=== PATIENT | male | born 1960 | race Caucasian/White ===

== ENCOUNTER → 2017-02-11 | Outpatient (CLI) | payer OTHER ==
[~2017-02-11] MED LIST: ADVAIR 250-501 EACH INH; COLACE100 MG PO; COUMADIN 5 MG TA5 M1 PO; HYDROCODONE-APA1 TA1 PO; IBUPROFEN200 M1 PO; OMEGA-31000 M1 PO; PROAIR HFA8.5 GM INH; PROTONIX40 M1 PO; VENLAFAXIN75 MG/1 T2 PO; WELLBUTRIN SR150 MG PO; XARELTO10 MG PO
== END ==
LOC: ULTRA 02-10 07:44
DX: K76.89 Other specified diseases of liver (principal); K55.059 Acute (reversible) ischemia of intestine, part and extent unspecified

== ENCOUNTER 2017-03-11 13:19 | Emergency (ER) | payer OTHER ==
[~2017-03-11] VITALS: Ht 182.9 cm; Wt 136.1 kg
[~2017-03-11 13:19] MED LIST changes: +EFFEXOR XR150 MG PO; -VENLAFAXIN75 MG/1 T2 PO
[2017-03-11 14:05] LABS: URINE BILIRUBIN NEGATIVE (Negative); URINE BLOOD NEGATIVE (Negative); URINE COLOR YELLOW; URINE GLUCOSE-RANDOM* NEGATIVE (Negative); URINE KETONES TRACE (Negative); URINE NITRITE NEGATIVE (Negative); URINE PROTEIN (DIPSTICK) NEGATIVE (Negative); URINE SPECIFIC GRAVITY 1.025 (1.003-1.035); URINE UROBILINOGEN 0.2 E.U./dl (0.2-1.0)
[2017-03-11 14:05] LABS: HEMATOCRIT 46.6 % (42.0-52.0); HEMOGLOBIN 15.6 gm/dL (14.0-18.0); MCH 32.4 pg (26.0-34.0); MCHC 33.4 g/dL (28.0-37.0); MCV 96.9 fL (80.0-100.0); PLATELET COUNT 266 thou/uL (150-400); RBC 4.81 mil/uL (4.50-6.00); RDW 13.4 % (10.5-14.5); WBC 7.1 thou/uL (4.0-11.0)
[2017-03-11 14:08] LABS: MANUAL DIFF YES
[2017-03-11 14:14] LABS: AMP/METHAMP Negative (Negative); BARBITURATES Negative (Negative); BENZODIAZEPINES Negative (Negative); COCAINE Negative (Negative); METHADONE Negative (Negative); OPIATES Negative (Negative); PCP Negative (Negative); THC Negative (Negative)
[2017-03-11 14:15] LABS: ANION GAP 10 mmol/L (7-16); BUN 12 mg/dL (7-18); CALCIUM 8.8 mg/dL (8.5-10.1); CHLORIDE 105 mmol/L (98-107); CO2 26 mmol/L (21-32); CREATININE 1.2 mg/dL (0.7-1.3); GLUCOSE 113 mg/dL (74-106); SODIUM 141 mmol/L (136-145)
[2017-03-11 14:19] LABS: ALBUMIN 3.7 g/dL (3.4-5.0); ALKALINE PHOSPHATASE 123 U/L (46-116); DIRECT BILIRUBIN < 0.1 mg/dL (<0.1-0.3); SALICYLATE < 2.8 mg/dL (2.8-20.0); SGOT 33 U/L (15-37); SGPT 45 U/L (30-65); TOTAL BILIRUBIN 0.2 mg/dL (<0.1-1.0)
[2017-03-11] MEDS ORDERED: ATIVAN1 MG PO (14:23)
[2017-03-11 14:36] LABS: ABSOLUTE NEUTROPHILS 4.1 thou/uL (1.4-8.2); TOTAL CELL COUNT 100
[2017-03-11 14:45] LABS: ACETAMINOPHEN < 2 ug/mL (10-30)
[2017-03-11] MEDS ORDERED: EFFEXOR XR75 MG PO (17:48)
[2017-03-11] MEDS ORDERED: VENLAFAXINE HC150 M1 PO (17:49)
== END 2017-03-11 18:39 | disposition home or self-care (01) ==
LOC: ER 13:19
PROVIDERS: Physician Assistant
DX: F32.9 Major depressive disorder, single episode, unspecified (principal); F17.210 Nicotine dependence, cigarettes, uncomplicated; Z98.890 Other specified postprocedural states

== ENCOUNTER → 2019-06-29 | Day surgery (SDC) | payer BC ==
[~2019-06-29] VITALS: Ht 182.9 cm; Wt 127.0 kg
[~2019-06-29] MED LIST changes: +ATIVAN1 MG PO; +BENADRYL25 MG PO; +EFFEXOR XR75 MG PO; +HAIR, SKIN AND1 EAC2 PO; +LEXAPRO20 MG PO; +PERCOCET 7.5-31 EAC1 PO; +RITALIN10 MG PO; +SINGULAIR 10 MG10 M1 PO; +VENLAFAXINE HC150 M1 PO; +VRAYLAR1.5 MG PO; +XANAX 0.25 MG0.25 MG PO
--- NOTE | ~2019-06-29 | O ---
[facility] [place] [address] OPERATIVE REPORT Name: MARIAELENA FULLER Room #: REG [facility]..#: [id number] Admission: 06/29/19 Attend Phys: Isaac James MD Discharge: Date of : 58 Report #: [id number] THIS REPORT FOR: //name// CC: Isaac James Physician staff ERNA AC DATE OF SERVICE: 06/29/2019 PREOPERATIVE DIAGNOSIS: Bilateral foot 2, 3 and 4 hammertoe deformities. POSTOPERATIVE DIAGNOSIS: Bilateral foot 2, 3 and 4 hammertoe deformities. PROCEDURE: 1. Bilateral foot second, third and fourth toe proximal interphalangeal joint arthrodesis. 2. Bilateral foot second, third and fourth metatarsophalangeal joint dorsal capsulotomy and tenotomy. SURGEON: Dr. Isaac James. PRODUCT CRAFTSMAN: Keyla Hernandez. ANESTHESIA: General. ESTIMATED BLOOD LOSS: Minimal. DRAINS: No drains. TOURNIQUET TIME: On the left was 30 minutes. On the right was 30 minutes. DESCRIPTION OF PROCEDURE: The patient brought to the operating room where he was placed under general anesthesia. Once under adequate general anesthesia, his bilateral lower extremities were prepped and draped in a sterile manner. The left lower extremity was then elevated, exsanguinated, tourniquet placed 300 mmHg. Dorsal incisions at the proximal interphalangeal joints of the second, third and fourth toes was made. This was dissected sharply down to the proximal interphalangeal joint where the proximal phalangeal head was then exposed, releasing the collateral ligaments. The proximal phalangeal head at the second, third and fourth toes was then excised utilizing a sagittal saw and a rongeur. The bases of the middle phalanges were prepared with a rongeur to good bleeding subchondral bone and subsequently each toe was drilled and broached for at the proximal and middle phalanges for the Smart Toe implants. Smart Toe implants were then placed in the second, third and fourth toes respectively size 21, 19 and 19. Excellent fixation across the joint was achieved in this manner as verified under fluoroscopy. Dorsal incisions at the 2-3 and 3-4 web spaces were [facility] [address] [place] [address] OPERATIVE REPORT Name: MARIAELENA FULLER Room #: REG SD M.R.#: [id number] Admission: 06/29/19 Attend Phys: Isaac James MD Discharge: Date of : 58 Report #: [id number]. Dissection was carried down to the second, third and fourth metatarsophalangeal joints respectively where a dorsal capsulotomy and tenotomy was performed with tenotomy scissors and a [place] blade. Once complete, the wounds were irrigated copiously and closed with 3-0 Vicryl in subcutaneous tissues and 3-0 nylon for the skin. The tourniquet was let down on the left side at 30 minutes. We then proceeded to the right side, which was then elevated, exsanguinated, tourniquet placed 300 mmHg. Dorsal incisions at the second, third and fourth toes were made over the proximal interphalangeal joints. Exposure was made of the proximal phalangeal heads, which were then resected utilizing a sagittal saw and a rongeur. The bases of the middle phalanges were then prepared as well with a rongeur to good bleeding subchondral bone. Smart Toe implants were then drilled and broached for and then placed at the second, third and fourth toes size 21, 19 and 19 respectively second, third and fourth toes. Excellent fixation was achieved as verified under fluoroscopy. Dorsal incisions at the 2-3 and 3-4 web space was made with dissection carried down to the extensor mechanisms, which were then released utilizing tenotomy scissors and a [place] blade for the dorsal capsules. Final images were taken, noting excellent reduction. The wounds were then irrigated copiously and closed with 3-0 Vicryl in subcutaneous tissues and 3-0 nylon for the skin. The wounds were dressed with Xeroform, 4 x 4s, and sterile soft compressive dressing was placed. Tourniquet was let down on the right side at 30 minutes. Toes were pink and warm with good capillary refill. There were no complications from the procedure. The patient tolerated the procedure well and went to the recovery room without incident. By: [id number] Isaac James MD /rosette
[2019-06-29 13:06] VITALS: BP 120/71
[2019-06-29 14:39] VITALS: BP 120/71
== END | disposition home or self-care (01) ==
LOC: OR 09:45
DX: M20.42 Other hammer toe(s) (acquired), left foot (principal); M20.41 Other hammer toe(s) (acquired), right foot; J45.909 Unspecified asthma, uncomplicated; F32.9 Major depressive disorder, single episode, unspecified; F41.9 Anxiety disorder, unspecified; F17.210 Nicotine dependence, cigarettes, uncomplicated; G47.30 Sleep apnea, unspecified; Z98.890 Other specified postprocedural states; Z79.899 Other long term (current) drug therapy; Z96.641 Presence of right artificial hip joint; Z90.49 Acquired absence of other specified parts of digestive tract
CPT/HCPCS: 50010; 50101; 50386; 50951; 56524; 56527; 57091; 57165; 57179; 62110; 62900; 70005